=== PATIENT | female | born 1970 | race African-American/Black ===

== ENCOUNTER 2016-11-08 14:38 | Emergency (ER) | payer OTHER ==
[~2016-11-08] VITALS: Ht 167.6 cm; Wt 81.8 kg
[2016-11-08] MEDS ORDERED: PERCT PO (14:57)
[2016-11-08] MEDS ORDERED: CARI350 PO (14:57)
[2016-11-08 15:17] LABS: APPEARANCE,URINE CLOUDY (CLEAR); GLUCOSE, URINE (UA) NEGATIVE (NEGATIVE); KETONES,URINE NEGATIVE (NEGATIVE); LEUKOCYTE ESTERASE ,URINE NEGATIVE (NEGATIVE); OCCULT BLOOD,URINE NEGATIVE (NEGATIVE); PROTEIN,URINE NEGATIVE (NEGATIVE)
[2016-11-08 15:18] LABS: ADD UA MICROSCOPIC NO
[2016-11-08] MEDS ORDERED: SILVER SULFADIAZINE 1% 25 GM CREAM TP ONE (16:00)
[2016-11-08] MEDS ORDERED: PERTUSS(ACELL),DIPH,TET VAC/PF 0.5 ML VIAL IM ONE (16:15)
[2016-11-08 16:40] VITALS: BP 136/84
== END 2016-11-08 16:55 | disposition home or self-care (01) ==
LOC: EMS 14:40
DX: T22.212A Burn of second degree of left forearm, initial encounter (principal); N39.0 Urinary tract infection, site not specified; Z88.0 Allergy status to penicillin; X08.8XXA Exposure to other specified smoke, fire and flames, initial encounter; Y93.89 Activity, other specified; Y92.89 Other specified places as the place of occurrence of the external cause; Y99.8 Other external cause status
CPT/HCPCS: 16020; 81003; 90471; 90715; 99285; Z7610